=== PATIENT | male | born 1955 | race Caucasian/White ===

== ENCOUNTER 2020-09-13 13:14 | Emergency (ER) | payer MEDICARE ==
[2020-09-13] MEDS ORDERED: Sodium Chloride 0.9% 100 ML ONE (14:02)
[2020-09-13] MEDS ORDERED: Cefepime 2 GM VIAL ONE (14:02)
[2020-09-13 14:05] LABS: Hemoglobin 13.7 g/dL (14.0-18.0); Mean Corpuscular HGB CONC 29.9 g/dL (32.0-36.0); Mean Corpuscular Hemoglobin 28.8 pg (27.0-31.0); Mean Corpuscular Volume 96.3 fL (78.0-98.0); Mean Platelet Volume 9.1 fL (7.4-10.4); Platelet Count 179 thou/uL (130-400); RBC Distribution Width 15.2 % (11.5-14.5); Red Blood Cell (RBC) Count 4.75 mill/uL (4.70-6.10); White Blood Cell (WBC) Count 7.4 thou/uL (4.8-10.8)
[2020-09-13 14:13] LABS: ALT (SGPT) 41 U/L (8-55); AST (SGOT) 32 U/L (5-34); Albumin 3.6 g/dL (3.4-4.8); Alkaline Phosphatase 104 U/L (40-110); Anion Gap 15 mmol/L (10-20); BUN (Urea Nitrogen) 30 mg/dL (8.4-25.7); Bilirubin, Total 1.4 mg/dL (0.2-1.2); Calc. Creatinine Clearance 0 mL/min (70-130); Calcium 8.5 mg/dL (7.8-10.44); Carbon Dioxide 25 mmol/L (23-31); Chloride 101 mmol/L (98-107); Globulin 2.4 g/dL (2.4-3.5); Glucose 87 mg/dL (80-115); Potassium 3.6 mmol/L (3.5-5.1); Sodium 137 mmol/L (136-145)
[2020-09-13 14:40] LABS: CKMB 10.4 ng/mL (0-6.6)
[2020-09-13 14:44] LABS: #Basophils 0.1 thou/uL (0.0-0.2); #Eosinphils 0.1 thou/uL (0.0-0.7); #Monocytes 0.8 thou/uL (0.11-0.59); #Neutrophils 5.4 thou/uL (1.40-6.50); %Basophils 1.3 % (0.0-1.0); %Eosinophils 0.7 % (0.0-10.0); %Lymphocytes 13.9 % (21.0-51.0); %Monocytes 10.9 % (0.0-10.0); %Neutrophils 73.1 % (42.0-75.0); Hypochromia SLIGHT = 6-15 cells (100X) (0-5/hpf); MDiff Complete? YES
[2020-09-13] MEDS ORDERED: Aspirin Chewable 81 MG TAB ONE (15:16)
[2020-09-13 15:37] LABS: Bilirubin Small (Negative); Blood, Urine Trace (Negative); Glucose, Urine (Dipstick) Negative (Negative); Ketone, Urine Negative (Negative); Leukocyte Negative (Negative); Nitrite Negative (Negative); Protein, Urine (Dipstick) > or equal to 300 mg/dL (Neg-Trace); Urobilinogen 0.2 mg/dL (Less than 2)
[2020-09-13 15:38] LABS: Specific Gravity, Urine 1.023 (1.002-1.036)
[2020-09-13 15:39] LABS: Clarity Hazy (Clear)
[2020-09-13 15:45] LABS: Bacteria/HPF 2+ HPF (None Seen); Mucous/LPF 4+ LPF (<2+); RBC/HPF 0-3 HPF (0-3); Squamous Epithelial 0-3 HPF (0-3)
[2020-09-13] MEDS ORDERED: Furosemide 40 MG/4 ML VIAL ONE (16:15)
[2020-09-13 16:36] LABS: Lactic Acid 2.1 mmol/L (0.5-2.2)
--- NOTE | 2020-09-13 17:06 | RAD ---
PORTABLE CHEST: 09/13/20 An AP portable film at 1410 shows cardiomegaly. The vessels show some slight prominence such that there may be some early congestive change. No lobar infiltrates or effusions are seen. An AICD is in place. IMPRESSION: Cardiomegaly with slight vascular prominence. Early congestive change is possible. POS: HOME
== END 2020-09-13 16:47 | disposition short-term general hospital (02) ==
LOC: BURERS 13:14
DX: I50.9 Heart failure, unspecified (principal); R74.02 Elevation of levels of lactic acid dehydrogenase [LDH]; J43.9 Emphysema, unspecified; Z87.891 Personal history of nicotine dependence; Z79.899 Other long term (current) drug therapy
CPT/HCPCS: 36415; 71045; 80053; 81003; 81015; 82553; 83605; 83880; 84484; 85025; 87040; 87086; 93005; 96365; 96367; 96375; J0692; J1940; J3370; J3490